=== PATIENT | male | born 1975 | race Caucasian/White ===

== ENCOUNTER 2021-03-05 09:34 | Emergency (ER) | payer MEDICAID, SELFPAY ==
[~2021-03-05] VITALS: Ht 172.7 cm; Wt 97.5 kg
[2021-03-05 09:36] VITALS: BP 110/73
--- NOTE | 2021-03-05 09:44 | NUR ---
Patient ambulated to bed 8. RN evaluating the patient at bedside.
--- NOTE | 2021-03-05 10:02 | NUR ---
Dr. Arzola is evaluating the patient at bedside.
--- NOTE | 2021-03-05 10:03 | NUR ---
46 YEAR OLD MALE COMPLAINS OF LOWER BACK PAIN X 3 DAYS. PT ALSO COMPLAINS OF HEADACHE WITH FEVER, AFEBRILE IN TRIAGE. PT DENIES TRAUMA, DENIES N/V/D. PT AOX4, BREATHING EVEN AND UNLABORED, SKIN WARM AND DRY. BED IN LOWEST POSITION, LOCKED, BED RAIL UPX1. PMH - DENIES ALLERGIES - NKA
[2021-03-05] MEDS ORDERED: NACL 0.9% 1,000 ML IV ONE (10:05)
[2021-03-05] MEDS ORDERED: KETOROLAC 15 MG/ML VIAL IVP ONE (10:05)
[2021-03-05 10:33] LABS: BASOPHILS % (AUTO) 0.4 % (0.0-2.0); EOSINOPHILS % (AUTO) 0.1 % (0.0-4.0); HEMATOCRIT 44.7 % (36-52); HEMOGLOBIN 15.8 g/dL (12.0-18.0); LYMPHOCYTES # (AUTO) 0.6 K/uL (2.0-11.5); LYMPHOCYTES % (AUTO) 22.4 % (20.5-51.1); MEAN CORPUSCULAR HEMOGLOBIN 31 pg (27-31); MEAN CORPUSCULAR HGB CONC 35 g/dL (33-37); MEAN CORPUSCULAR VOLUME 87.3 fL (80-94); MONOCYTES # (AUTO) 0.3 K/uL (0.8-1.0); MONOCYTES % (AUTO) 11.4 % (1.7-9.3); NEUTROPHILS # (AUTO) 1.8 K/uL (1.8-7.7); NEUTROPHILS % (AUTO) 65.7 % (42.2-75.2); PLATELET COUNT (AUTO) 106 K/uL (140-450); RED BLOOD CELL COUNT(AUTO) 5.12 MIL/uL (4.20-6.10); RED CELL DISTRIBUTION WIDTH 13.8 % (11.6-13.7); WHITE BLOOD COUNT (AUTO) 2.8 K/uL (4.8-10.8)
[2021-03-05 10:44] LABS: ALBUMIN 3.8 g/dL (3.4-5.0); ANION GAP 9.1 (8-16); CARBON DIOXIDE 28.4 mmol/L (21-32); CREATININE 1.1 mg/dL (0.6-1.3); POTASSIUM 3.5 mmol/L (3.5-5.1); TOTAL BILIRUBIN 0.8 mg/dL (0.0-1.0)
[2021-03-05 10:59] LABS: APPEARANCE,URINE CLEAR (CLEAR); BILIRUBIN,URINE 1+ (NEGATIVE); BLOOD, URINE NEGATIVE (NEGATIVE); COLOR,URINE ORANGE (YELLOW); LEUKOCYTE ESTERASE ,URINE NEGATIVE (NEGATIVE); NITRITE, URINE NEGATIVE (NEGATIVE); UGLUCOSE NEGATIVE (NEGATIVE)
--- NOTE | 2021-03-05 11:00 | NUR ---
PT AOX4, BREATHING EVEN AND UNLABORED. NO DISTRESS NOTED.
[2021-03-05] MEDS ORDERED: HYDROcodone/APAP 5/325 MG 1 TAB TAB PO ONE (11:20)
[2021-03-05 11:24] LABS: RBC,URINE 0-5 /HPF (0-5); WBC,URINE 0-5 /HPF (0-5)
[2021-03-05] MEDS ORDERED: IBUP-2213 PO (12:03)
--- NOTE | 2021-03-05 12:10 | NUR ---
Patient discharged with v/s stable. Written and verbal after care instructions about musculoskeletal given and explained. Patient alert, oriented and verbalized understanding of instructions. Ambulatory with steady gait. All questions addressed prior to discharge. ID band removed. Patient advised to follow up with PMD. Rx of ibuprofen given. Patient educated on indication of medication including possible reaction and side effects. Opportunity to ask questions provided and answered.
[2021-03-05 12:13] VITALS: BP 110/73
--- NOTE | 2021-03-05 12:14 | NUR ---
Note gypsy in ED - 03/05/21 at 1214 by [facility] PT AOX4, BREATHING EVEN AND UNLABORED. NO DISTRESS NOTED.
== END 2021-03-05 12:10 | disposition home or self-care (01) ==
LOC: MED 09:34
DX: M79.10 Myalgia, unspecified site (principal); Z20.822 Contact with and (suspected) exposure to COVID-19; R51.9 Headache, unspecified; R61 Generalized hyperhidrosis; E07.9 Disorder of thyroid, unspecified; Z79.899 Other long term (current) drug therapy
CPT/HCPCS: 36415; 70450; 80053; 81001; 85025; 87040; 87426; 87804; 96361; 96374; 99284; J1885; J7030